=== PATIENT | female | born 1965 | race Caucasian/White ===

== ENCOUNTER → 2019-10-27 10:53 | Outpatient (CLI) | payer BC, SELFPAY ==
--- NOTE | 2019-10-27 11:00 | MM_ITS ---
PROCEDURE: MM DIG SCREENING MAMM BI W/CAD Digital Breast Tomosynthesis Included CLINICAL INDICATION: SCREENING There is no personal or family history of breast cancer. COMPARISON: MG Screening-Bilateral Mammography from 08/28/2016 MG Screening-Bilateral Mammography from 10/01/2017 MG Screening-Bilateral Mammography from 10/07/2018 TECHNIQUE: Standard CC and MLO images and 3D Tomosynthesis was obtained. R2 CAD reviewed. FINDINGS: Moderate diffuse scattered fibroglandular densities are seen throughout both breast and the findings are bilateral and symmetrical. Fissures lesion in either breast and no suspicious microcalcifications. IMPRESSION: Fibrofatty parenchyma with no suspicious lesions seen BI-RAD Category: 1 Negative FOLLOW-UP: 1YR 1 Year Follow-up (A letter has been sent to the patient regarding results of the study.) Dictated by: Dr. Owen Villegas MD 11/24/2019 08:31 Dr. Owen Villegas MD in [place] 11/24/2019 08:31
== END ==
PROVIDERS: PCP Internal Medicine; Visit Provider Obstetrics & Gynecology Gynecology
DX: Z12.31 Encounter for screening mammogram for malignant neoplasm of breast (principal)
CPT/HCPCS: 77063; 77067

== ENCOUNTER → 2020-11-15 15:25 | Outpatient (CLI) | payer BC, SELFPAY ==
--- NOTE | 2020-11-15 15:27 | MM_ITS ---
PROCEDURE INFORMATION: Exam: MG Bilateral Screening 3D Mammography Exam date and time: 11/15/2020 3:27 PM Age: 55 years old Clinical indication: Encounter for screening mammogram for malignant neoplasm of breast TECHNIQUE: Imaging protocol: Bilateral screening tomosynthesis and 2D mammography including computer-aided detection (CAD) when performed. COMPARISON: No relevant prior studies available. FINDINGS: MAMMOGRAPHY: Breast composition: The breast tissue is heterogeneously dense, which may obscure small masses. Mass: None. Architectural distortion: None. Calcifications: No suspicious calcifications. Asymmetric density: None. Skin thickening: None. Axillary adenopathy: None. IMPRESSION: No mammographic evidence of malignancy. Annual screening is recommended unless otherwise clinically indicated. ASSESSMENT: BI-RADS Category 1: Negative
== END ==
PROVIDERS: PCP Internal Medicine; Visit Provider Obstetrics & Gynecology Gynecology
DX: Z12.31 Encounter for screening mammogram for malignant neoplasm of breast (principal)
CPT/HCPCS: 77063; 77067

== ENCOUNTER → 2021-07-04 08:21 | Outpatient (CLI) | payer BC, SELFPAY ==
[2021-07-04 09:58] LABS: Free T4 (Free Thyroxine) 0.84 ng/dl (0.78-2.19)
[2021-07-04 10:13] LABS: Thyroid Stimulating Hormone 0.99 uIU/mL (0.465-4.68)
== END ==
PROVIDERS: Visit Provider Internal Medicine Endocrinology, Diabetes & Metabolism
DX: E05.00 Thyrotoxicosis with diffuse goiter without thyrotoxic crisis or storm (principal)
CPT/HCPCS: 36415; 84439; 84443

== ENCOUNTER → 2021-08-14 14:11 | Outpatient (CLI) | payer BC, SELFPAY ==
[2021-08-14 21:45] LABS: Thyroid Stimulating Hormone 0.35 uIU/mL (0.465-4.68)
== END ==
PROVIDERS: PCP Internal Medicine; Visit Provider Internal Medicine Endocrinology, Diabetes & Metabolism
DX: E05.00 Thyrotoxicosis with diffuse goiter without thyrotoxic crisis or storm (principal)
CPT/HCPCS: 36415; 84439; 84443

== ENCOUNTER → 2021-11-21 10:20 | Outpatient (CLI) | payer BC, SELFPAY ==
--- NOTE | 2021-11-21 10:24 | MM_ITS ---
PROCEDURE INFORMATION: Exam: MG Bilateral Screening 3D Mammography Exam date and time: 11/21/2021 10:16 AM Age: 56 years old Clinical indication: Screening examination. Her mother had breast cancer. TECHNIQUE: Imaging protocol: Bilateral Screening tomosynthesis and 2D mammography including computer-aided detection (CAD) when performed. COMPARISON: 1. MG MM DIG SCREENING MAMM BI W/CAD 11/15/2020 3:41 PM 2. MG MM DIG SCREENING MAMM BI W/CAD 10/27/2019 11:05 AM 3. MG Screening-Bilateral Mammography 10/07/2018 2:29 PM FINDINGS: MAMMOGRAPHY: Breast composition: The breasts are heterogeneously dense, which may obscure small masses. Mass: None. Architectural distortion: None. Calcifications: No suspicious calcifications. Asymmetric density: None. Skin thickening: None. Axillary adenopathy: None. IMPRESSION: No mammographic evidence of malignancy. Annual screening is recommended unless otherwise clinically indicated. ASSESSMENT: BI-RADS Category 1: Negative
== END ==
PROVIDERS: PCP Internal Medicine; Visit Provider Obstetrics & Gynecology Gynecology
DX: Z12.31 Encounter for screening mammogram for malignant neoplasm of breast (principal)
CPT/HCPCS: 77063; 77067

== ENCOUNTER → 2021-12-19 15:48 | Outpatient (CLI) | payer BC, SELFPAY ==
[2021-12-19 18:39] LABS: Thyroid Stimulating Hormone < 0.02 uIU/mL (0.465-4.68)
== END ==
PROVIDERS: PCP Internal Medicine; Visit Provider Internal Medicine Endocrinology, Diabetes & Metabolism
DX: E05.00 Thyrotoxicosis with diffuse goiter without thyrotoxic crisis or storm (principal)
CPT/HCPCS: 36415; 84439; 84443

== ENCOUNTER → 2022-01-23 14:53 | Outpatient (CLI) | payer BC, SELFPAY ==
[2022-01-23 17:05] LABS: Free T4 (Free Thyroxine) 1.98 ng/dl (0.78-2.19)
[2022-01-23 17:19] LABS: Thyroid Stimulating Hormone < 0.02 uIU/mL (0.465-4.68)
== END ==
PROVIDERS: PCP Internal Medicine; Visit Provider Internal Medicine Endocrinology, Diabetes & Metabolism
DX: E05.00 Thyrotoxicosis with diffuse goiter without thyrotoxic crisis or storm (principal)
CPT/HCPCS: 36415; 84439; 84443

== ENCOUNTER → 2022-02-27 13:30 | Outpatient (CLI) | payer BC, SELFPAY ==
[2022-02-27 15:18] LABS: Free T4 (Free Thyroxine) 1.96 ng/dl (0.78-2.19)
[2022-02-27 15:32] LABS: Thyroid Stimulating Hormone < 0.02 uIU/mL (0.465-4.68)
== END ==
PROVIDERS: PCP Internal Medicine; Visit Provider Internal Medicine Endocrinology, Diabetes & Metabolism
DX: E05.00 Thyrotoxicosis with diffuse goiter without thyrotoxic crisis or storm (principal)
CPT/HCPCS: 36415; 84439; 84443

== ENCOUNTER → 2022-11-13 14:09 | Outpatient (CLI) | payer BC, SELFPAY ==
[2022-11-13 16:11] LABS: Free T4 (Free Thyroxine) 0.85 ng/dl (0.78-2.19)
[2022-11-13 16:26] LABS: Thyroid Stimulating Hormone < 0.02 uIU/mL (0.465-4.68)
== END ==
PROVIDERS: PCP Internal Medicine; Visit Provider Internal Medicine Endocrinology, Diabetes & Metabolism
DX: E05.00 Thyrotoxicosis with diffuse goiter without thyrotoxic crisis or storm (principal)
CPT/HCPCS: 36415; 84439; 84443

== ENCOUNTER → 2022-12-04 13:34 | Outpatient (CLI) | payer BC, SELFPAY ==
--- NOTE | 2022-12-04 13:37 | MM_ITS ---
PROCEDURE INFORMATION: Exam: MG Bilateral Screening 3D Mammography Exam date and time: 12/04/2022 1:31 PM Age: 57 years old Clinical indication: Screening examination. Her mother had breast cancer at age 82. TECHNIQUE: Imaging protocol: Bilateral Screening tomosynthesis and 2D mammography including computer-aided detection (CAD) when performed. COMPARISON: 1. MG MM DIG SCREENING MAMM BI W/CAD 11/21/2021 10:16 AM 2. MG MM DIG SCREENING MAMM BI W/CAD 11/15/2020 3:41 PM 3. MG MM DIG SCREENING MAMM BI W/CAD 10/27/2019 11:05 AM 4. MG Screening-Bilateral Mammography 10/07/2018 2:29 PM FINDINGS: MAMMOGRAPHY: Breast composition: The breasts are heterogeneously dense, which may obscure small masses. Mass: None. Architectural distortion: None. Calcifications: No suspicious calcifications. Asymmetric density: None. Skin thickening: None. Axillary adenopathy: None. IMPRESSION: No mammographic evidence of malignancy. Annual screening is recommended unless otherwise clinically indicated. ASSESSMENT: BI-RADS Category 1: Negative
== END ==
PROVIDERS: PCP Internal Medicine; Visit Provider Obstetrics & Gynecology Gynecology
DX: Z12.31 Encounter for screening mammogram for malignant neoplasm of breast (principal)
CPT/HCPCS: 77063; 77067

== ENCOUNTER → 2023-01-03 11:33 | Outpatient (CLI) | payer BC, SELFPAY ==
[2023-01-03 12:48] LABS: Free T4 (Free Thyroxine) 0.86 ng/dl (0.78-2.19)
[2023-01-03 13:04] LABS: Thyroid Stimulating Hormone 0.57 uIU/mL (0.465-4.68)
== END ==
PROVIDERS: PCP Internal Medicine; Visit Provider Internal Medicine Endocrinology, Diabetes & Metabolism
DX: E05.00 Thyrotoxicosis with diffuse goiter without thyrotoxic crisis or storm (principal)
CPT/HCPCS: 36415; 84439; 84443

== ENCOUNTER 2023-06-25 10:43 | Outpatient (CLI) | payer BC, SELFPAY ==
[2023-06-25 12:04] LABS: Free T4 (Free Thyroxine) 0.84 ng/dl (0.78-2.19)
[2023-06-25 12:19] LABS: Thyroid Stimulating Hormone 1.19 uIU/mL (0.465-4.68)
== END 2023-06-25 23:59 | disposition home or self-care (01) ==
LOC: LAB 10:44
PROVIDERS: PCP Internal Medicine; Visit Provider Internal Medicine Endocrinology, Diabetes & Metabolism
DX: E05.00 Thyrotoxicosis with diffuse goiter without thyrotoxic crisis or storm (principal)
CPT/HCPCS: 36415; 84439; 84443

== ENCOUNTER 2023-08-06 12:00 | Outpatient (CLI) | payer BC, SELFPAY ==
[2023-08-06 13:06] LABS: Free T4 (Free Thyroxine) 0.99 ng/dl (0.78-2.19)
[2023-08-06 13:21] LABS: Thyroid Stimulating Hormone 1.01 uIU/mL (0.465-4.68)
== END 2023-08-06 23:59 | disposition home or self-care (01) ==
LOC: LAB 12:01
PROVIDERS: PCP Internal Medicine; Visit Provider Internal Medicine Endocrinology, Diabetes & Metabolism
DX: E05.00 Thyrotoxicosis with diffuse goiter without thyrotoxic crisis or storm (principal)
CPT/HCPCS: 36415; 84439; 84443

== ENCOUNTER 2023-09-24 09:09 | Outpatient (CLI) | payer BC, SELFPAY ==
--- NOTE | 2023-09-24 09:14 | XR_ITS ---
FINAL REPORT TECHNIQUE: Bone densitometry calculations of the lumbar spine and left hip were obtained. CLINICAL HISTORY: SCREENING COMPARISON: None FINDINGS: Using L1-4, the bone mineral density of the spine is 0.945 g/cm2, corresponding to T-score of -0.9. Using the left hip, the bone mineral density of the femoral neck is 0.832 g/cm2, corresponding to a T-score of -0.2. NOTE: T-score: Standard deviation compared with peak bone mass of young adult mean. *Following the recommendations of the International Society of Bone densitometry, classification of hip BMD is based on the lower of two T-scores; total hip or femoral neck. IMPRESSION: Normal bone mineral density of the lumbar spine and hip. Reviewed, Interpreted and Dictated by Charles Dale III, MD Transcribed by Yessenia Devi Authenticated and [facility]
== END 2023-09-24 23:59 | disposition home or self-care (01) ==
LOC: RAD 09:09
PROVIDERS: PCP Internal Medicine; Visit Provider Internal Medicine
DX: Z78.0 Asymptomatic menopausal state (principal)
CPT/HCPCS: 77080

== ENCOUNTER 2023-12-24 13:23 | Outpatient (CLI) | payer BC, SELFPAY ==
--- NOTE | 2023-12-24 13:26 | MM_ITS ---
PROCEDURE INFORMATION: Exam: MG Bilateral Screening 3D Mammography Exam date and time: 12/24/2023 1:10 PM Age: 58 years old Clinical indication: Screening examination TECHNIQUE: Imaging protocol: Bilateral Screening tomosynthesis and 2D mammography including computer-aided detection (CAD) when performed. COMPARISON: No relevant prior studies available. FINDINGS: MAMMOGRAPHY: Breast composition: The breasts are heterogeneously dense, which may obscure small masses. Mass: No suspicious masses. Architectural distortion: None. Calcifications: No suspicious calcifications. Asymmetric density: None. Skin thickening: None. Axillary adenopathy: None. IMPRESSION: No mammographic evidence of malignancy. Annual screening is recommended unless otherwise clinically indicated. ASSESSMENT: BI-RADS Category 1: Negative.
== END 2023-12-24 23:59 | disposition home or self-care (01) ==
LOC: RAD 13:24
PROVIDERS: PCP Internal Medicine; Visit Provider Obstetrics & Gynecology Gynecology
DX: Z12.31 Encounter for screening mammogram for malignant neoplasm of breast (principal)
CPT/HCPCS: 77063; 77067

== ENCOUNTER 2025-02-09 10:33 | Outpatient (CLI) | payer BC, SELFPAY ==
--- NOTE | 2025-02-09 10:35 | MM_ITS ---
PROCEDURE INFORMATION: Exam: MG Bilateral Screening 3D Mammography Exam date and time: 02/09/2025 10:37 AM Age: 59 years old Clinical indication: Screening examination TECHNIQUE: Imaging protocol: Bilateral Screening tomosynthesis and 2D mammography including computer-aided detection (CAD) when performed. COMPARISON: 1. MG MM DIG SCREENING MAMM BI W/CAD 12/24/2023 1:10 PM 2. MG MM DIG SCREENING MAMM BI W/CAD 12/04/2022 1:31 PM FINDINGS: MAMMOGRAPHY: Breast composition: There are scattered areas of fibroglandular density. Mass: No suspicious masses. Architectural distortion: None. Calcifications: No suspicious calcifications. Asymmetric density: None. Skin thickening: None. Axillary adenopathy: None. IMPRESSION: No mammographic evidence of malignancy. Annual screening is recommended unless otherwise clinically indicated. ASSESSMENT: BI-RADS Category 1: Negative.
--- OUTSIDE RECORDS SUMMARY | 2025-02-09 10:37 | XMS_ITS | Clinical Summary ---
Author Organization [facility] Address [address] [place] [address] Care Team Providers Care Field Service Technician Name Role Phone Tyrell Villegas MD Primary Care Provider [phone] Allergies No known active allergies Medications multivitamin (THERAGRAN) tablet tablet Take 1 tablet by mouth Daily. Active Cholecalciferol 25 MCG (1000 UT) tablet Take 1 tablet by mouth Daily. Active Calcium Carbonate-Vit D-Min (Calcium 600+D Plus Minerals) 600-400 MG-UNIT tablet Take 1 tablet by mouth Daily. Active estradiol (ESTRACE) 1 MG tablet Take 1 tablet by mouth Daily. 4 Active medroxyPROGESTE Jerrell (PROVERA) 5 MG tablet Take 1 tablet by mouth Daily. 4 Active celecoxib (CeleBREX) 200 MG capsuleIndicati ons:Chronic thumb pain, bilateral Take 1 capsule by mouth Daily. As needed for pain 90 capsule 3 5 Active Diclofenac Sodium (VOLTAREN) 1 % gel gelIndications: Chronic thumb pain, bilateral Apply 4 g topically to the appropriate area as directed 4 (Four) Times a Day As Needed (As needed for pain). 150 g 1 5 Active atorvastatin (LIPITOR) 10 MG tabletIndicatio ns:Dyslipidemia TAKE 1 TABLET BY MOUTH EVERY DAY AT NIGHT 90 tablet 3 5 Active Active Problems Problem Noted Date Diagnosed Date PAULA (stress urinary incontinence, female) 2024 Overview (08/25/2024): Status post pubovaginal sling procedure Assessment & Plan (08/25/2024 10:07 AM EDT): Patient status post pubovaginal sling procedure several years prior initially having had good control of her incontinence, now with recurrence. I did discuss pelvic floor strengthening using Kegel exercises, and offered her formal referral for pelvic floor strengthening therapy which she declines at this time Dizziness 08/25/2024 Assessment & Plan (08/25/2024 10:10 AM EDT): Patient reports very vague sporadic dizziness, fleeting in nature, no associated cardiopulmonary symptoms, orthostatic evaluation unremarkable, EKG today normal, update pertinent labs including thyroid function testing and CBC. Advise if symptoms become more prominent. Chronic thumb pain, bilateral 08/25/2024 Assessment & Plan (08/25/2024 10:13 AM EDT): Bilateral thumb pain involving the CMC and PIP joints, clinically most consistent with degenerative arthritis. There is no involvement elsewhere in her hands, clinical exam less likely related to tendinitis. She has not had good clinical results with use of Advil [id number]. Initiate Celebrex, as well as Voltaren gel. Advise if symptoms not improving at which point we will then refer to orthopedic surgery. Elevated blood pressure read ing without diagnosis of hypertension 08/25/2024 Assessment & Plan (08/25/2024 10:12 AM EDT): Mild intermittent stage II elevation of her blood pressure noted here in the office, previous office evaluations have been unremarkable. EKG today normal. I advised at this stage monitoring blood pressures at home with ideal parameters and proper monitoring technique discussed, with patient advised if over several months or blood pressures averaging consistently greater or equal to 140/90. Work on healthy lifestyle with diet avoiding added salt exercise and weight loss. Testing at follow-up visit in 1 year. Encounter for general adult medical examination with abnormal findings 08/20/2023 Assessment & Plan (08/25/2024 10:14 AM EDT): 59-year-old female presenting for complete physical, specific health issues being addressed as detailed below, health maintenance includes mammogram reportedly normal in winter 2024, data deficient with pending attempt to obtain report, Pap smear reported normal in approximately 09/2023 again data deficient with patient to follow-up with LOT TECHNICIAN, DEXA scan normal 09/2023 with recommended follow-up in 2 to 3 years, colonoscopy in 09/2016 revealing a hyperplastic nonprecancerous polyp with 10-year follow-up recommended, Capvaxive vaccine administered today, recommended to update Shingrix vaccine through pharmacy, recommend to keep current with COVID- 19 and flu vaccine guidelines, updating screening labs, EKG today unremarkable. Tentative follow-up in 1 year for another complete physical assuming lab testing satisfactory, and as needed in the interim. Assessment & Plan (08/20/2023 9:58 AM EDT): Pleasant generally healthy 58-year-old female, health issues being addressed as detailed below, health maintenance includes colonoscopy from 09/2016 satisfactory with 10-year follow-up recommended, Pap smear reportedly last in 09/2022 and normal, regular follow-up with student assistant, mammogram reported last in 11/2022 normal, data deficient, obtaining report, update DEXA scan, recommended update Shingrix and COVID-19 vaccine at pharmacy, obtain screening appropriate labs. 1 year follow- up. Encounter for screening mamm ogram for malignant neoplasm of breast 08/20/2023 Postmenopausal 08/20/2023 Assessment & Plan (08/20/2023 9:57 AM EDT): No significant vasomotor symptoms, followed by Dr. Navarrete of gynecology, update DEXA scan taking calcium 600 mg plus vitamin D 1000 IU daily along with regular weightbearing. 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 Use ibuprofen as needed. Bilateral foot pain 08/20/2023 Assessment & Plan (08/20/2023 9:58 AM EDT): History of intermittent bilateral foot pain with no evidence clinically at this time of any abnormality, recommended use of high-quality shoe with good arch support. Use ibuprofen as needed. Prediabetes 08/14/2022 Overview (08/25/2024): Hemoglobin A1c 5.7 in 08/2022, 6.1% in 08/2023, 5.6% in 08/2019 Assessment & Plan (08/25/2024 10:05 AM EDT): Hemoglobin A1c today normalized to 5.6%, versus 6.1% in 08/2023. Pursue healthy lifestyle changes. Given normalization of testing we will simply repeat testing in 1 year Assessment & Plan (08/20/2023 9:56 AM EDT): Hemoglobin A1c 5.7% in 08/2022, update testing. Update testing and encourage healthy lifestyle. Dental decay 05/02/2022 Assessment & Plan (08/25/2024 10:03 AM EDT): Extensive dental decay noted. Strongly advised dental consultation for definitive treatment. Assessment & Plan (08/20/2023 9:59 AM EDT): Advised patient to seek dental consultation for treatment, appropriate dental hygiene discussed. Primary osteoarthritis of left foot 05/02/2022 Primary osteoarthritis of right foot 05/02/2022 Vitamin D deficiency 05/02/2022 Assessment & Plan (08/25/2024 10:06 AM EDT): Currently taking vitamin D 1000 IU once daily. Update level Assessment & Plan (08/20/2023 9:55 AM EDT): Initiate vitamin D 1000 IU OTC. Dyslipidemia 05/02/2022 Assessment & Plan (08/25/2024 10:02 AM EDT): Currently taking atorvastatin 10 mg nightly. Update lipid profile. Assessment & Plan (08/20/2023 9:55 AM EDT): Update lipid profile, currently not on any cholesterol-lowering medication. Pursue healthy lifestyle with diet and exercise. Overweight (BMI 25.0-29.9) 05/02/2022 Assessment & Plan (08/25/2024 10:05 AM EDT): Minimally elevated BMI with 5 pound weight loss noted in the last 8 months. We did discuss need to increase her exercise and improve her diet with more fruit and vegetable intake, reducing all junk foods fast foods and sweetened drinks, primarily drinking water, need to increase her physical activity. Specifically recommended following a Mediterranean diet. Assessment & Plan (08/20/2023 9:56 AM EDT): Minimally elevated BMI, weight stable, encourage healthy lifestyle with diet and exercise. Graves' disease 09/20/2020 Assessment & Plan (08/25/2024 10:04 AM EDT): History of Graves' disease status post treatment with Tapazole, subsequent discontinuation of Tapazole 06/2023 with most recent thyroid function testing having been normal. No physical stigmata or subjective symptoms suggestive of hypothyroidism at this time. Followed by endocrinology, Dr. Jerome, who has recently discharged her from specialty follow-up given normal thyroid function testing, advising that she obtain follow-up thyroid function testing next office. Updating thyroid function testing. Assessment & Plan (08/20/2023 9:55 AM EDT): Followed regularly by Dr. Jerome of endocrinology, last visit in 05/2023, patient having had discontinuation of Tapazole in 06/2023 with most recent thyroid function testing normal late 07/2023. She gets frequent monitoring of her thyroid function testing, clinically appears to be euthyroid. Keep follow-up with endocrinology. Defer thyroid function testing to heel nailing machine operator. Postmenopausal HRT (hormone replacement therapy) 05/03/2020 Assessment & Plan (08/25/2024 10:06 AM EDT): Patient postmenopausal prescribed estrogen and Provera by Dr. Navarrete of gynecology who recently has retired. Patient intends to schedule follow-up with alternative student assistant in [place]. She was advised to contact this office if she does need a referral. Encounters Date Type Department Care Team Description 01/12/2025 Telephone [facility] [address] [place] [address] [place] [phone] Tyrell Villegas MD 01/03/2025 Telephone [facility] [address] [place] [phone] Tyrell Villegas MD ORDERS 11/10/2024 10:15 AM EDT Clinical Support [facility] [address] [place] [address] [place] [id number] Encounter for immunization (Primary Dx) 11/10/2024 Travel from Last 3 Months Immunizations Immunization Administration Dates Next Due Fluzone >6mos 11/10/2024,12/10/2023 Fluzone (or Fluarix & Flulaval for VFC) >6mos PCV21 (CAPVAXIVE) 08/25/2024 Tdap 05/30/2017 Family History Medical History Relation Name Comments Stroke Father Cancer Mother Mom breast Heart disease Mother Mom Relation Name Status Comments Father Mother Mom Alive Social History Tobacco Use Types Packs/Day Years Used Date Smoking Tobacco: Never Smokeless Tobacco: Never Tobacco Cessation:Counseling Given: Not Answered Alcohol Use Standard Drinks/Week Comments Never 0 (1 standard drink = 0.6 oz pur e alcohol) AUDIT-C Answer Date Recorded Q1: How often do you have a drink containing alc ohol? Never 09/20/2020 Average Number of Drinks Not on file 021 Frequency of Binge Drinking Not on file 09/10 PHQ-2 Answer Date Recorded Retired PHQ-9: Brief Depression Severity Measure Score 0 08/14/2022 PHQ-2 Answer Date Recorded Patient Health Questionnaire-2 Score 0 08/25/2024 Comments Unknown Sex and Gender Information Value Date Recorded Sex Assigned at Not on file Legal Sex Female 11:33 AM EST Gender Identity Not on file Sexual Orientation Not on file Last Filed Vital Signs Vital Sign Reading Time Taken Comments Blood Pressure 124/80 08/25/2024 9:06 AM EDT Pulse 82 08/25/2024 9:06 AM EDT Temperature 36.6 C (97.8 F) 08/25/2024 9:06 AM EDT Respiratory Rate 18 05/03/2020 1:52 PM EDT Oxygen Saturation 98% 08/25/2024 9:06 AM EDT Inhaled Oxygen Concentration - - Weight 59.6 kg (131 lb 6.4 oz) 08/25/2024 9:06 A M EDT Height 147.3 cm (4' 10 ) 08/25/2024 9:06 AM EDT Body Mass Index 27.46 08/25/2024 9:06 AM EDT Plan of Treatment Upcoming Encounters Date Type Department Care Team (Late st Contact Info) Description 08/26/2025 1:30 PM EDT Office Visit [facility] [address] [place] [phone] Tyrell Villegas MD [address] [place] [id number] Health Maintenance Due Date Last Done Comments Annual Gynecologic Pelvic an d Breast Exam 1965 COLOGUARD 08/07/2011 COLON CANCER SCREENING 5 YEA R SIGMOIDOSCOPY 08/07/2011 CT COLONOGRAPHY 08/07/2011 FECAL OCCULT BLOOD TEST 08/07/2011 FIT Testing (1 year) 08/07/2011 ZOSTER VACCINE (1 of 2) 2016 ANNUAL PHYSICAL 08/25/2025 08/25/2024, 08/10, 08/14/2022, Additional history exists MAMMOGRAM 09/06/2026 12/24/2023, 11/11, 11/21/2021 COLONOSCOPY 10/04/2026 10/04/2016, 10/04/2016 COLORECTAL CANCER SCREENING 10/04/2026 PAP SMEAR 12/03/2026 12/04/2023, 09/13/2020 TDAP/TD VACCINES (2 - Td or Tdap) 05/31/2027 018 HEPATITIS C SCREENING Completed 08/14/2022 Pneumococcal Vaccine 50+ Completed 08/25/2024 INFLUENZA VACCINE Completed 11/10/2024, , 10/30/2022 Procedures Procedure Name Priority Date/Time Associated Diagnosis Comments SCANNED - MAMMO 12/24/2023 HEPATITIS C ANTIBODY Routine 08/14/2022 9:57 AM EDT Encounter for general adult medical examination with abnormal findings Need for hepatitis C screening test SCANNED - COLONOSCOPY 10/04/2016 from Last 3 Months or Most Recently Relevant to Health Maintenance Results * MAMMO Scan (12/24/2023) Anatomical Region Laterality Modality Other us Tyrell Villegas MD CHART REVIEW TABS Final Res ult * Hepatitis C Antibody (08/14/2022 9:57 AM EDT) Hep C Virus Ab Non Reactive Non Reactive [facility] Comment: HCV antibody alone does not differentiate between previously resolved infection and active infection. Equivocal and Reactive HCV antibody results should be followed up with an HCV RNA test to support the diagnosis of active HCV infection. Blood Structure of right upper limb / Unknown 08/14/2022 9:57 AM EDT 08/15/2022 Comment:Blood Release to [facility] Narrative [facility] (AMBULATORY) - 08/15/2022 8:08 AM EDT Performed at: - [address] [id number] [employer] Crop [employer] Livestock Farmer: Alexis Verduzco PhD, Phone: [phone] us Tyrell Villegas MD LAB BLOOD ORDERABLES Final Res ult [facility] [address] [place] [address], [place] [phone] [facility] [address] [place] [address], [place] [phone] * SCANNED - COLONOSCOPY (10/04/2016) us Tyrell Villegas MD CHART REVIEW TABS Final Res ult from Last 3 Months or Most Recently Relevant to Health Maintenance Insurance [facility] PPO Care Teams Field Service Technician Relationship Specialty Start Date End Date Tyrell Villegas MD [address] [place] [address] PCP - General Internal Medicine 05/03/20
--- OUTSIDE RECORDS SUMMARY | 2025-02-09 10:37 | XMS_ITS | Encounter Summary ---
Author Organization [facility] Address [address] [place] [address] Care Team Providers Care Director Targeted Marketing Name Role Phone Tyrell Villegas MD Primary Care Provider [phone] Encounter Details Date Type Department Care Team (Late st Contact Info) Description 01/12/2025 Telephone [facility] [address] [place] [address] [place] [phone] Tyrell Villegas MD [address] [place] [address] [place] [address] Social History Tobacco Use Types Packs/Day Years Used Date Smoking Tobacco: Never Smokeless Tobacco: Never Alcohol Use Standard Drinks/Week Comments Never 0 [...] on file Sexual Orientation Not on file documented as of this encounter Miscellaneous Notes * Telephone Encounter - Shania Lucas RegSched Rep - 01/18/2025 9:38 AM EST A user error has taken place: encounter opened in error, closed for administrative reasons. documented in this encounter Plan of Treatment Upcoming Encounters Date Type Department Care Team (Late st Contact Info) Description 08/26/2025 1:30 PM EDT Office Visit [facility] [address] [place] [id number] Tyrell Villegas MD [address] [place] [address] [place] [address] documented as of this encounter Visit Diagnoses Not on filedocumented in this encounter Care Teams Director Targeted Marketing Relationship Specialty Start Date End Date Tyrell Villegas MD [address] [place] [address] [place] [address] PCP - General Internal Medicine 05/03/20 documented as of this encounter
--- OUTSIDE RECORDS SUMMARY | 2025-02-09 10:37 | XMS_ITS | Encounter Summary ---
Author Organization [facility] Address [address] [place] [address] Care Team Providers Care Patternmaker Sample Name Role Phone Tyrell Villegas MD Primary Care Provider [phone] Reason for Visit * Reason Onset Date Comments ORDERS 01/03/2025 Encounter Details Date Type Department Care Team (Late st Contact Info) Description 01/03/2025 Telephone [facility] [address] [place] [address] [place] [phone] Tyrell Villegas MD [address] [place] [address] [place] [address] ORDERS Social History Tobacco Use Types Packs/Day Years [...] encounter Miscellaneous Notes * Telephone Encounter - Bibi Garcia MA - 01/04/2025 10:23 AM EST I have left a vm letting her know the order has been sent. TF * Telephone Encounter - Bimal Disla RegSched Rep - 01/03/2025 4:04 PM EST Caller: Arlene Acharya Relationship: Self Best call back number: [phone] What orders are you requesting (i.e. lab or imaging): MAMMOGRAM In what timeframe would the patient need to come in: STEPHANIE Where will you receive your lab/imaging services: [facility] documented in this encounter Plan of Treatment Upcoming Encounters Date Type Department Care Team (Late st Contact Info) Description 08/26/2025 1:30 PM EDT Office Visit [facility] [address] [place] [phone] Tyrell Villegas MD [address] [place] [address] [place] [id number] documented as of this encounter Visit Diagnoses Not on filedocumented in this encounter Care Teams Patternmaker Sample Relationship Specialty Start Date End Date Tyrell Villegas MD [address] [place] [place] [id number] PCP - General Internal Medicine 05/03/20 documented as of this encounter
== END 2025-02-09 23:59 | disposition home or self-care (01) ==
LOC: RAD 10:33
PROVIDERS: PCP Internal Medicine; Visit Provider Internal Medicine
DX: Z12.31 Encounter for screening mammogram for malignant neoplasm of breast (principal); R92.323 Mammographic fibroglandular density, bilateral breasts
CPT/HCPCS: 77063; 77067